=== PATIENT | male | born 1980 | race Caucasian/White ===

== ENCOUNTER 2017-09-19 21:29 | Emergency (ER) | payer BC ==
[~2017-09-19] VITALS: Ht 185.4 cm; Wt 99.8 kg
[~2017-09-19 21:29] MED LIST: ACET1TAB43; BUPR150T14 PO; CITA20TA9 PO; CLIN150C17 PO; IBUP-1773 PO; LIDO15SO2; METH36TA12 PO; PRD20T
[2017-09-19] MEDS ORDERED: SULF1TAB35 PO (22:15)
[2017-09-19] MEDS ORDERED: RX-TRIMETH/SULFA. 160-800 MG (BACTRIM DS) TAB PPK#2 PO ONE (22:15)
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
[2017-09-19 23:42] VITALS: BP 145/74
== END 2017-09-19 23:42 | disposition home or self-care (01) ==
LOC: EDUNIT# 21:29 → ER 21:31
DX: S66.221A Laceration of extensor muscle, fascia and tendon of right thumb at wrist and hand level, initial encounter (principal); F32.9 Major depressive disorder, single episode, unspecified; F90.9 Attention-deficit hyperactivity disorder, unspecified type; Z87.891 Personal history of nicotine dependence; W25.XXXA Contact with sharp glass, initial encounter; Y92.009 Unspecified place in unspecified non-institutional (private) residence as the place of occurrence of the external cause; Y93.G1 Activity, food preparation and clean up
CPT/HCPCS: 12041; 29125

== ENCOUNTER 2018-07-25 21:09 | Emergency (ER) | payer BC, OTHER ==
[~2018-07-25] VITALS: Ht 185.4 cm; Wt 90.7 kg
[~2018-07-25 21:09] MED LIST changes: +SULF1TAB35 PO
[2018-07-25] MEDS ORDERED: HYDROcodone/APAP 5 MG/325 MG (LORTAB) TAB PO ONE (22:15)
[2018-07-25] MEDS ORDERED: RX-HYDROCODONE/APAP 5/325 MG #4 TAB PK PO PRN (22:15)
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
[2018-07-25] MEDS ORDERED: HYDR-4226 PO (23:14)
[2018-07-25 23:26] VITALS: BP 102/73
--- NOTE | 2018-07-26 08:01 | Diagnostic Imaging Report ---
INDICATION: Left hand pain, work injury. TECHNIQUE: Three views of the left hand. CORRELATION STUDY: None FINDINGS: There is normal alignment and appearance of the osseous structures of the hand. The joint spaces are maintained. There is no acute fracture. Soft tissues are unremarkable. IMPRESSION: 1. Negative for acute bony abnormality of the hand. Dictated by: Dictated on workstation # [id number]
== END 2018-07-25 23:28 | disposition home or self-care (01) ==
LOC: EDUNIT# 21:09 → ER 21:10
DX: S60.222A Contusion of left hand, initial encounter (principal); F90.9 Attention-deficit hyperactivity disorder, unspecified type; F32.9 Major depressive disorder, single episode, unspecified; F98.8 Other specified behavioral and emotional disorders with onset usually occurring in childhood and adolescence; Z87.891 Personal history of nicotine dependence; W22.09XA Striking against other stationary object, initial encounter
CPT/HCPCS: 73130

== ENCOUNTER 2019-06-25 00:57 | Inpatient (IN) | payer SELFPAY ==
[~2019-06-25] VITALS: Ht 185.5 cm; Wt 87.1 kg
[~2019-06-25 00:57] MED LIST changes: +HYDR-4226 PO; -LIDO15SO2; +LIDO20SO23
[2019-06-25] MEDS ORDERED: LACTATED RINGERS 1,000 ML IV ONE (01:38)
[2019-06-25 01:55] LABS: BASOPHILS % (AUTO) 0 % (0-10); EOSINOPHILS # (AUTO) 0.2 10^3/uL (0.0-0.3); EOSINOPHILS % (AUTO) 2 % (0-10); HEMATOCRIT 39 % (40-54); HEMOGLOBIN 13.2 G/DL (13.3-17.7); LYMPHOCYTES # (AUTO) 1.6 X 10^3 (1.0-4.0); LYMPHOCYTES % (AUTO) 15 % (12-44); MEAN CORPUSCULAR HEMOGLOBIN 30 PG (25-34); MEAN CORPUSCULAR HGB CONC 34 G/DL (32-36); MEAN CORPUSCULAR VOLUME 89 FL (80-99); MEAN PLATELET VOLUME 9.5 FL (7.4-10.4); MONOCYTES # (AUTO) 1.2 X 10^3 (0.0-1.0); MONOCYTES % (AUTO) 12 % (0-12); NEUTROPHILS # (AUTO) 7.5 X 10^3 (1.8-7.8); NEUTROPHILS % (AUTO) 71 % (42-75); PLATELET COUNT 322 10^3/uL (130-400); RED CELL DISTRIBUTION WIDTH 12.6 % (10.0-14.5); WHITE BLOOD COUNT 10.5 10^3/uL (4.3-11.0)
[2019-06-25] MEDS ORDERED: ACETAMINOPHEN 500 MG TAB (TYLENOL) PO STA (02:29)
[2019-06-25] MEDS ORDERED: KETOROLAC 30 MG/ML VIAL IVP STA (02:29)
[2019-06-25 02:35] LABS: ALANINE AMINOTRANSFERASE 24 U/L (0-55); ALBUMIN 4.3 GM/DL (3.2-4.5); ALKALINE PHOSPHATASE 86 U/L (40-136); BILIRUBIN,TOTAL 0.3 MG/DL (0.1-1.0); BUN/CREATININE RATIO 9; CARBON DIOXIDE 26 MMOL/L (21-32); CHLORIDE 100 MMOL/L (98-107); CREATININE SERUM 0.98 MG/DL (0.60-1.30); GFR ESTIMATED > 60; GLUCOSE 108 MG/DL (70-105); POTASSIUM 4.3 MMOL/L (3.6-5.0); SODIUM 136 MMOL/L (135-145)
[2019-06-25] MEDS ORDERED: IOHEXOL 350 MG/ML 100 ML (OMNIPAQUE 350) VIAL IV ONE (03:15)
[2019-06-25] MEDS ORDERED: HOLD METFORMIN - RECEIVED CONTRAST 20 ML VIAL IV SCH (03:15)
[2019-06-25] MEDS ORDERED: NS 100 ML (IVPB) BAG IV ONE (03:15)
[2019-06-25] MEDS ORDERED: AMPICILLIN/SULBACTAM INJECTION 3 GM in NS (IVPB) 100 ML IV ONE (04:00)
--- NOTE | 2019-06-25 04:20 | ED EENT ---
History of Present Illness General Chief Complaint: Oral/Throat Problems Stated Complaint: DIFFICULTY SWALLOWING, FEVER Nursing Triage Note: Pt ambulates to Rm 6 with c/o sore throat, left side of mouth swollen. Pt states the last time his mouth felt like this, he had a dental abscess. Pt temp 100.6F Source: patient Exam Limitations: no limitations History of Present Illness Date Seen by Provider: Jun 25, 2019 Time Seen by Provider: 01:39 Initial Comments Here with complaint of throat swelling and difficulty swallowing. States that it feels like when he had peritonsillar abscess previously. He does have fever. He is able to swallow but states that it hurts. Denies nausea, vomiting or diarrhea. Does have his tonsils but has had adenoidectomy. Timing/Duration: gradual Severity: moderate Location: throat Prearrival Treatment: over the counter meds Modifying Factors: Worse With Coughing Associated Symptoms: No cough, No facial pain/swelling; fever; No poor fluid intake; poor solids intake, sore throat; No voice change Allergies and Home Medications Allergies Coded Allergies: No Known Drug Allergies (Unverified , 04/02/17) Home Medications Bupropion HCl 150 Mg Tablet.er, 150 MG PO BID, (Reported) Citalopram Hydrobromide 20 Mg Tablet, 20 MG PO DAILY, (Reported) Hydrocodone/Acetaminophen 1 Each Tablet, 1 EACH PO Q6H PRN for PAIN-MODERATE Prescribed by: MARK MIGUEL on 07/25/18 2314 Ibuprofen 600 Mg Tablet, 600 MG PO Q6H PRN for PAIN-MILD, (Reported) Methylphenidate HCl 36 Mg Tab.er.24, 36 MG PO DAILY, (Reported) Sulfamethoxazole/Trimethoprim 1 Each Tablet, 1 EACH PO BID Prescribed by: ANA QUINONES on 09/19/17 2215 Patient Home Medication List Home Medication List Reviewed: Yes Review of Systems Review of Systems Constitutional: see HPI, fever Eyes: No Symptoms Reported Ears: No Symptoms Reported Nose: no symptoms reported Mouth: no symptoms reported Throat: see HPI, pain, swelling; denies neck stiffness; hoarse; denies aphonia, denies muffled Respiratory: no symptoms reported Cardiovascular: no symptoms reported Gastrointestinal: no symptoms reported Musculoskeletal: no symptoms reported All Other Systems Reviewed Negative Unless Noted: Yes Past Zlexrwo-Allryn-Hhnsuw Hx Past Med/Social Hx: Reviewed Nursing Past Med/Soc Hx Patient Social History Alcohol Use: Rarely Uses Number of Drinks Today: AA Alcohol Beverage of Choice: Beer Recreational Drug Use: No Smoking Status: Current Everyday Smoker Type Used: Cigarettes Former Smoker, Quit: May 27, 2017 2nd Hand Smoke Exposure: Yes Recent Foreign Travel: No Contact w/Someone Who Travel: No Recent Infectious Disease Expo: No Recent Hopitalizations: No Physical Abuse: No Sexual Abuse: No Mistreated: No Fear: No Immunizations Up To Date Tetanus Booster (TDap): Less than 5yrs Date of Influenza Vaccine: Apr 06, 2017 Seasonal Allergies Seasonal Allergies: No Past Medical History Surgeries: Yes (tubes in ears, oral Sx for abscess) Ear Surgery Respiratory: No Cardiac: No Neurological: No Reproductive Disorders: No Genitourinary: No Gastrointestinal: No Musculoskeletal: No Endocrine: No HEENT: No Cancer: No Psychosocial: Yes ADD/ADHD, Depression Integumentary: No Blood Disorders: No Family Medical History Reviewed Nursing Family Hx Physical Exam Vital Signs Vital Signs - First Documented 06/25/19 01:37 Temp 38.1 Pulse 82 Resp 20 B/P (MAP) 140/78 (98) Pulse Ox 98 O2 Delivery Room Air Height, Weight, BMI Height: 6'1.00" Weight: 200lbs. 0oz. 90.999874ii; 24.00 BMI Method:Stated General Appearance: WD/WN, no apparent distress Eyes: bilateral eye normal inspection, bilateral eye PERRL, bilateral eye EOMI Ears: bilateral ear auricle normal, bilateral ear canal normal, bilateral ear TM normal Nose: normal inspection Mouth/Throat: No dental tenderness; pharynx swelling, tonsillar swelling; No trismus; uvula swelling; No voice changes Neck: full range of motion, supple, lymphadenopathy (R), lymphadenopathy (L) Cardiovascular: regular rate, rhythm, no murmur Respiratory: lungs clear, normal breath sounds Gastrointestinal: non tender, soft Neurologic/Psychiatric: alert, oriented x 3 Skin: normal color, warm/dry Procedures/Interventions Suture Size: 4-0 Progress/Results/Core Measures Results/Orders Lab Results Laboratory Tests Test 06/25/19 01:36 06/25/19 01:41 Range/Units Group A Streptococcus Screen NEGATIVE NEGATIVE White Blood Count 10.5 4.3-11.0 10^3/uL Red Blood Count 4.36 4.35-5.85 10^6/uL Hemoglobin 13.2 L 13.3-17.7 G/DL Hematocrit 39 L 40-54 % Mean Corpuscular Volume 89 80-99 FL Mean Corpuscular Hemoglobin 30 25-34 PG Mean Corpuscular Hemoglobin Concent 34 32-36 G/DL Red Cell Distribution Width 12.6 10.0-14.5 % Platelet Count 322 130-400 10^3/uL Mean Platelet Volume 9.5 7.4-10.4 FL Neutrophils (%) (Auto) 71 42-75 % Lymphocytes (%) (Auto) 15 12-44 % Monocytes (%) (Auto) 12 0-12 % Eosinophils (%) (Auto) 2 0-10 % Basophils (%) (Auto) 0 0-10 % Neutrophils # (Auto) 7.5 1.8-7.8 X 10^3 Lymphocytes # (Auto) 1.6 1.0-4.0 X 10^3 Monocytes # (Auto) 1.2 H 0.0-1.0 X 10^3 Eosinophils # (Auto) 0.2 0.0-0.3 10^3/uL Basophils # (Auto) 0.0 0.0-0.1 10^3/uL Sodium Level 136 135-145 MMOL/L Potassium Level 4.3 3.6-5.0 MMOL/L Chloride Level 100 98-107 MMOL/L Carbon Dioxide Level 26 21-32 MMOL/L Anion Gap 10 5-14 MMOL/L Blood Urea Nitrogen 9 7-18 MG/DL Creatinine 0.98 0.60-1.30 MG/DL Estimat Glomerular Filtration Rate > 60 BUN/Creatinine Ratio 9 Glucose Level 108 H 70-105 MG/DL Calcium Level 9.0 8.5-10.1 MG/DL Corrected Calcium 8.8 8.5-10.1 MG/DL Total Bilirubin 0.3 0.1-1.0 MG/DL Aspartate Amino Transf (AST/SGOT) 23 5-34 U/L Alanine Aminotransferase (ALT/SGPT) 24 0-55 U/L Alkaline Phosphatase 86 40-136 U/L C-Reactive Protein High Sensitivity 3.21 H 0.00-0.50 MG/DL Total Protein 7.0 6.4-8.2 GM/DL Albumin 4.3 3.2-4.5 GM/DL Micro Results Microbiology 06/25/19 Influenza Types A,B Antigen (OLLIE) - Final, Complete My Orders Orders - SHELLI YOUNG MD Cbc With Automated Diff (06/25/19 01:38) Comprehensive Metabolic Panel (06/25/19 01:38) Hs C Reactive Protein (06/25/19 01:38) Rapid Strep A Screen (06/25/19 01:38) Influenza A And B Antigens (06/25/19 01:38) Ed Iv/Invasive Line Start (06/25/19 01:38) Lactated Ringers (Lr 1000 Ml Iv Solution (06/25/19 01:38) Acetaminophen Tablet (Tylenol Tablet) (06/25/19 02:29) Ketorolac Injection (Toradol Injection) (06/25/19 02:29) Ct Neck (Soft Tissue) W (06/25/19 02:29) Iohexol Injection (Omnipaque 350 Mg/Ml 1 (06/25/19 03:15) Received Contrast (Hold Metformin- Contr (06/25/19 03:15) Ns (Ivpb) (Sodium Chloride 0.9% Ivpb Bag (06/25/19 03:15) Ampicillin/Sulbactam Injection (Unasyn 3 (06/25/19 04:00) Medications Given in ED Current Medications Medications Dose Ordered Sig/Nevaeh Route Start Time Stop Time Status Last Admin Dose Admin Iohexol 100 ml ONCE ONCE IV 06/25/19 03:15 06/25/19 03:16 DC 06/25/19 03:06 75 ML Lactated Ringer's 1,000 ml @ 0 mls/hr Q0M ONCE IV 06/25/19 01:38 06/25/19 01:40 DC 06/25/19 01:46 0 MLS/HR Sodium Chloride 100 ml ONCE ONCE IV 06/25/19 03:15 06/25/19 03:16 DC 06/25/19 03:06 80 ML Vital Signs/I&O 06/25/19 01:37 Temp 38.1 Pulse 82 Resp 20 B/P (MAP) 140/78 (98) Pulse Ox 98 O2 Delivery Room Air Blood Pressure Mean: 98 Progress Progress Note : Progress Note Seen and evaluated. IV, labs, CMP, LR 1 L bolus, Toradol 30 mg IV and Tylenol 1 g by mouth ordered. Anticipate CT soft tissue neck. 0405: Patient was found to have left peritonsillar abscess. Unasyn 3 g IV ordered. I did discuss the case with Dr. Vick and she accepts patient for admission, on-call for Dr. Modi. We will consult Dr. Aburto tomorrow morning. All findings concerns discussed with patient and family who agree with plan. Admit, inpatient status. Diagnostic Imaging Diagonstic Imaging: CT Plain Films/CT/US/NM/MRI: other (soft tissue neck) Comments Small left tonsillar abscess. Bilateral tonsillar enlargement. Reviewed: Reviewed Night Amrit Study, Reviewed by Me Departure Communication (Admissions) Time/Spoke to Admitting Phy: 04:05 Impression Primary Impression: Peritonsillar abscess Disposition: ADMITTED INPATIENT Condition: Stable Admissions Decision to Admit Reason: Admit from ER (General) Decision to Admit/Date: Jun 25, 2019 Time/Decision to Admit Time: 04:05 Departure-Patient Inst. Referrals: SUDEEP MODI MD (PCP/Family) Primary Care Physician SHELLI YOUNG MD Jun 25, 2019 04:20
--- NOTE | 2019-06-25 06:05 | NUR ---
DANIKA MURCIA admitted to room 415-1, with an admitting diagnosis of TOOTH ABSCESS, on 06/25/19 from ED via , accompanied by .DANIKA MURCIA introduced to surroundings, call light, bed controls, phone, TV, temperature control, lights, meal times, smoking policy, visitor policy, side rail policy, bathrooms and showers. Patient Rights given to patient in the handbook. DANIKA MURCIA verbalizes understanding that [facility] is not responsible for the loss or damage to any personal effects or valuables that are kept in the patients posession during their hospitalization. DANIKA MURCIA verbalizes understanding of Interdisciplinary Patient Education. Patient and/or family were informed about the Rapid Response Team and its purpose.
--- NOTE | 2019-06-25 06:10 | Diagnostic Imaging Report ---
PROCEDURE: CT neck soft tissue with contrast. TECHNIQUE: Multiple contiguous axial images were obtained through the neck after the administration of contrast. Auto Exposure Controls were utilized during the CT exam to meet ALARA standards for radiation dose reduction. INDICATION: Sore throat. Comparison made with prior examination 04/02/2017. FINDINGS: The visualized intracranial structures are unremarkable. The frontal ethmoid, sphenoid and maxillary sinuses are clear. Mastoid air cells are clear. The globes and intraorbital structures are unremarkable. The parotid, submandibular and thyroid glands are normal in appearance. The lung apices are clear. The major vascular structures of the neck enhance in normal fashion. There is no dissection, stenosis or occlusion. Cervical spine is unremarkable. Epiglottis is unremarkable. There is focal edema in the region of the left tonsil. There is a 1 cm area of decreased attenuation suspect for abscess. There is some mass effect on airway, however it remains widely patent. There is no pathologically enlarged adenopathy or mass in the neck. IMPRESSION: 1 cm left peritonsillar abscess. Additionally, there is bilateral tonsillar enlargement. No other acute abnormality in the neck. Dictated by: Dictated on workstation # [id number]
[2019-06-25 06:12] VITALS: BP 124/76
[2019-06-25] MEDS ORDERED: FLU QUADRIvalent (5+ YOA) 2019-2020 (AFLURIA) 0.5 ML IM ONE (07:15)
[2019-06-25 07:25] VITALS: BP 112/64
[2019-06-25] MEDS ORDERED: ONDANSETRON 4 MG/2 ML (SDV) Z0FRAN IVP PRN (07:45)
[2019-06-25] MEDS: KETOROLAC 30 MG/ML VIAL IVP PRN ×2 (09:02→16:26)
[2019-06-25] MEDS ORDERED: DEXAMETHASONE 4 MG/ML SDV (DECADRON) IV NR (09:17)
--- NOTE | 2019-06-25 09:20 | History & Physicial ---
History of Present Illness History of Present Illness Reason for visit/HPI PT IS A 38 Y/O MALE WHO IS A CLINIC PATIENT OF DR. 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 HE PRESENTED TO THE EMERGENCY DEPARTMENT WITH COMPLAINT OF THROAT PAIN SIMILAR TO A PREVIOUS PERITONSILLAR ABSCESS AND HE WAS CONCERNED FOR THIS TO BE AN EVOLVING PROBLEM. HE REPORTS THAT HE WAS HOSPITALIZED IN 2017 FOR A LARGE ABSCESS AND DR. CAMPUZANO HAD TO DRAIN THE ABSCESS. HE STATES THAT HE FEELS A LITTLE BIT BETTER NOW, BUT STILL HAS A FULLNESS AND A SENSATION OF CHOKING AT TIMES. Date of Admission Jun 25, 2019 at 04:12 Date Seen by a Provider: Jun 25, 2019 Time Seen by a Provider: 09:16 I consulted on this patient on 06/25/19 09:15 Attending Physician Valarie Vick MD Admitting Physician Jose Modi MD Consult DR. CHANI CAMPUZANO Allergies and Home Medications Allergies Coded Allergies: No Known Drug Allergies (Unverified , 04/02/17) Home Medications Bupropion HCl 150 Mg Tablet.er, 150 MG PO BID, (Reported) Citalopram Hydrobromide 20 Mg Tablet, 20 MG PO DAILY, (Reported) Methylphenidate HCl 54 Mg Tab.er.24, 54 MG PO DAILY, (Reported) Patient Home Medication List Home Medication List Reviewed: Yes Past Kdyuuck-Ttfnwt-Sloaxc Hx Patient Social History Marrital Status: single (BUT ENGAGED) Number of Children: 2 Number of living children: 2 Living Status: LIVES WITH SIGNIFICANT OTHER Employed/Student: unemployed (WORKED FOR [employer]) Alcohol Use: Denies Use Number of Drinks Today: AA Recreational Drug Use: No Smoking Status: Former Smoker Former Smoker, Quit: May 27, 2017 Type Used: Cigarettes 2nd Hand Smoke Exposure: Yes Physical Abuse Screen: No Sexual Abuse: No Recent Foreign Travel: No Contact w/other who traveled: No Recent Hopitalizations: No Recent Infectious Disease Expo: No Immunizations Up To Date Tetanus Booster (TDap): Less than 5yrs Date of Influenza Vaccine: Apr 06, 2017 Seasonal Allergies Seasonal Allergies: No Surgeries Yes (tubes in ears, oral Sx for PERITONSILAR abscess IN 2017) Ear Surgery Respiratory No Cardiovascular No Neurological No Reproductive System Hx Reproductive Disorders: No Sexually Transmitted Disease: No HIV/AIDS: No Genitourinary No Gastrointestinal No Musculoskeletal No Endocrine History of Endocrine Disorders: No HEENT History of HEENT Disorders: No Cancer No Psychosocial History of Psychiatric Problem: Yes Behavioral Health Disorders: ADD/ADHD, Depression Integumentary History of Skin or Integumenta: No Blood Transfusions History of Blood Disorders: No Reviewed Nursing Assessment Reviewed/Agree w Nursing PMH: Yes Family Medical History Significant Family History: No Pertinent Family Hx (PT REPORTS THAT HIS MOTHER AND FATHER ARE ALIVE AND HEALTHY) Review of Systems Constitutional: No chills, No fever, No malaise, No weakness EENTM: throat pain, throat swelling; No hoarseness, No mouth swelling Respiratory: No cough, No dyspnea on exertion, No short of breath Cardiovascular: No chest pain, No palpitations Gastrointestinal: No abdominal pain, No constipation, No diarrhea; dysphagia; No loss of appetite, No nausea, No vomiting Genitourinary: no symptoms reported Musculoskeletal: no symptoms reported Skin: no symptoms reported Psychiatric/Neurological: Depressed All Other Systems Reviewed Negative Unless Noted: Yes Physical Exam Vital Signs Vital Signs - First Documented 06/25/19 01:37 Temp 38.1 Pulse 82 Resp 20 B/P (MAP) 140/78 (98) Pulse Ox 98 O2 Delivery Room Air Capillary Refill : Less Than 3 Seconds Height, Weight, BMI Height: 6'1.00" Weight: 200lbs. 0oz. 90.814043br; 25.31 BMI Method:Stated General Appearance: No Apparent Distress, WD/WN Eyes: Bilateral Eye Normal Inspection, Bilateral Eye PERRL, Bilateral Eye EOMI HEENT: Tonsillar Enlargement (BIALTERALLY WITH LEFT PILLAR MORE ENLARGED THAN ON RIGHT) Neck: Non Tender, Supple, Lymphadenopathy (L) Respiratory: Chest Non Tender, Lungs Clear, Normal Breath Sounds, No Accessory Muscle Use, No Respiratory Distress Cardiovascular: Regular Rate, Rhythm, No Edema, No Murmur, Normal Peripheral Pulses Gastrointestinal: Normal Bowel Sounds, No Organomegaly, No Pulsatile Mass, Non Tender, Soft Rectal: Deferred Back: Normal Inspection, No CVA Tenderness, No Vertebral Tenderness Extremity: Normal Capillary Refill, Normal Inspection, Normal Range of Motion, Non Tender, No Calf Tenderness, No Pedal Edema Neurologic/Psychiatric: Alert, Oriented x3, No Motor/Sensory Deficits, Normal Mood/Affect, scale operator II-XII Norm as Tested Skin: Normal Color, Warm/Dry Lymphatic: Other (LEFT ANTERIOR AND POSTERIOR SURGICAL LYMPH NODES ENLARGED) Assessment/Plan Assessment and Plan LEFT PERITONSILLAR ABSCESS CHRONIC DEPRESSION ADHD LEFT PERITONSILLAR ABSCESS - PT ON UNASYN, CONTINUE WITH THIS ANTIBIOTIC IV FOR NOW AND MONITOR LABS, CRP, SYMPTOMS. - DISCUSSED CASE WITH DR. CAMPUZANO - HE WILL SEE PT LATER TODAY, HE REQUESTED INITIATION OF A DOSE OF DECADRON 10MG IV X 1. CHRONIC DEPRESSION - RESTART BUPROPRION AND CELEXA - I CONFIRMED BOTH DOSES WITH THE PATIENT. ADHD - HOLD HOME REGIMEN AT THIS TIME IT IS NOT NEEDED IN THE HOSPITAL. Admission Diagnosis LEFT PERITONSILLAR ABSCESS CHRONIC DEPRESSION ADHD Admission Status: Inpatient Order (span 2 midnights) Reason for Inpatient Admission: INPATIENT ADMISSION FOR IV ANTIBIOTICS FOR ACUTE PERITONSILLAR ABSCESS, WILL NEED ANTIBIOTICS, MAY NEEDS SURGICAL INTERVENTION IF SYMPTOMS DO NOT IMPROVE ON ANTIBIOTIC REGIMEN. WILL REQUIRE AT LEAST 48 - 72 HOURS IN HOSPITAL FOR TREATMENT PRIOR TO SAFE DISCHARGE TO HOME. Clinical Quality Measures DVT/VTE Risk/Contraindication: Risk Factor Score Per Nursin RFS Level Per Nursing on Admit: 1=Low/No VTE PPX VALARIE VICK MD Jun 25, 2019 09:20
[2019-06-25] MEDS ORDERED: METH54TA10 PO (10:35)
--- NOTE | 2019-06-25 11:00 | NUR ---
PT STATES HE FEELS BAD WITH SORE THROAT AND STATED THAT IV ANTIBIOTIC WOULD BE SOON. IV ANTIBIOTIC GIVEN AT 11:10 BECAUSE IT WAS GIVEN AT 0420 EARLIER, AND IT IS ORDERED Q8H. ( DUE AT 1400 PER PHARMACY TIMED.) Addendum: 06/25/19 at 1420 by WHITNEY WOOD RN UNASYN 3 GM GIVEN AT 0420 AND 1117
--- NOTE | 2019-06-25 11:05 | Progress Note ---
Standard Progress Note Progress Notes/Assess & Plan Date Seen by a Provider: Jun 25, 2019 Time Seen by a Provider: 11:00 Progress/Assessment & Plan ENT-Lamonte Santiago seen and evaluated-full consult dictated CHANI CAMPUZANO MD Jun 25, 2019 11:05
[2019-06-25 11:12] VITALS: BP 125/82
[2019-06-25] MEDS: AMPICILLIN/SULBACTAM 3 GM/NS 100 ML IVPB IV SCH ×6 (11:17→21:36)
[2019-06-25] MEDS: buPROPion SR 150 MG (WELLBUTRIN SR) TAB PO SCH ×2 (11:17→21:36)
--- NOTE | 2019-06-25 11:28 | NUR ---
PT. REQUESTS FLU VACCINE ON DISCHARGE.
[2019-06-25] MEDS: ACETAMINOPHEN 500 MG TAB (TYLENOL) PO PRN (15:57)
[2019-06-25] MEDS ORDERED: CHLORASEPTIC SPRAY 177 ML LIQUID MC PRN (16:00)
[2019-06-25 16:16] VITALS: BP 128/82
[2019-06-25 19:15] VITALS: BP 126/75
[2019-06-25] MEDS ORDERED: diphenhydrAMINE 25 MG TAB (BENADRYL) PO SCH (21:00)
[2019-06-26 04:00] VITALS: BP 148/82
[2019-06-26] MEDS: KETOROLAC 30 MG/ML VIAL IVP PRN ×2 (04:46→12:30)
[2019-06-26 05:27] LABS: HEMOGLOBIN 13.5 G/DL (13.3-17.7); MEAN PLATELET VOLUME 10.2 FL (7.4-10.4); RED CELL DISTRIBUTION WIDTH 12.6 % (10.0-14.5); WHITE BLOOD COUNT 12.4 10^3/uL (4.3-11.0)
[2019-06-26] MEDS: AMPICILLIN/SULBACTAM 3 GM/NS 100 ML IVPB IV SCH ×4 (05:33→12:30)
[2019-06-26 06:00] LABS: ALANINE AMINOTRANSFERASE 26 U/L (0-55); ALBUMIN 4.3 GM/DL (3.2-4.5); ALKALINE PHOSPHATASE 89 U/L (40-136); BILIRUBIN,TOTAL 0.5 MG/DL (0.1-1.0); BUN/CREATININE RATIO 10; CALCIUM 9.3 MG/DL (8.5-10.1); CARBON DIOXIDE 25 MMOL/L (21-32); CHLORIDE 102 MMOL/L (98-107); CREATININE SERUM 0.86 MG/DL (0.60-1.30); GFR ESTIMATED > 60; GLUCOSE 109 MG/DL (70-105); POTASSIUM 4.2 MMOL/L (3.6-5.0); SODIUM 137 MMOL/L (135-145); TOTAL PROTEIN 7.4 GM/DL (6.4-8.2)
[2019-06-26 08:00] VITALS: BP 148/96
[2019-06-26] MEDS ORDERED: FLU QUADRIvalent (5+ YOA) 2019-2020 (AFLURIA) 0.5 ML IM ONE (08:58)
[2019-06-26] MEDS: buPROPion SR 150 MG (WELLBUTRIN SR) TAB PO SCH (09:05)
--- NOTE | 2019-06-26 10:15 | NUR ---
Pt is [employer] and declines sacraments expecting to go home.
[2019-06-26] MEDS: ACETAMINOPHEN 500 MG TAB (TYLENOL) PO PRN (10:52)
--- NOTE | 2019-06-26 11:34 | NUR ---
SPOKE WITH THE PT AND WENT THRU THE EXT MED HISTORY TO COMPLETE THE MED REC. THE MED REC WAS DONE OVER THE WEEKEND (06-25-2019) BY THE - AND NO CHANGED WERE MADE. PT DENIES TAKING ANY OTC MEDS
[2019-06-26 12:00] VITALS: BP 119/73
--- NOTE | 2019-06-26 12:26 | CONSULTATION REPORT ---
DATE OF SERVICE: ENT CONSULT LOCATION: [id number]. REFERRING PHYSICIAN: Dr. Vick. REASON FOR CONSULTATION: Left peritonsillar abscess. HISTORY OF PRESENT ILLNESS: The patient was admitted early this morning with a 1 cm left peritonsillar abscess. He had the acute onset of symptoms on Wednesday morning. He had progressed to the point where he is having difficulty swallowing. He presented to the emergency room, white count at that time was 10.5. CT scan showed a 1 cm abscess on the left. He has a prior history of a large abscess on the right, which measured some 5 to 6 cm in diameter. He has not been sick otherwise. He reports he is no longer traveling for work. PHYSICAL EXAMINATION: GENERAL: He is in no acute distress, alert and oriented x3. Communication, speech and voice were normal. HEENT: EARS: Canals were normal. Tympanic membranes were intact and mobile. No evidence of infection or fluid present. NOSE: Normal nasal mucosa, no masses or lesions seen. There is no drainage present. ORAL CAVITY: No trismus present. No swelling of the floor of the mouth. PHARYNX: Left tonsil asymmetrically enlarged, but no palpable abscess present. Larynx good airway present. Voice was normal. No stridor noted. NECK: Mild tenderness in the left tonsil region, but otherwise clear. NEUROLOGIC: Cranial nerves II-XII are intact. SKIN: Exposed skin surfaces were clear. IMPRESSION: 1. Left peritonsillar abscess -- small. 2. Acute tonsillitis. RECOMMENDATIONS: Findings were discussed with the patient. He has seen improvement with the steroids and the Unasyn. I will continue that for at least 24 hours as long as clinically he continues to improve and is able to tolerate a diet then he could be discharged tomorrow morning after his morning dose of IV antibiotics and steroids. I wrote prescriptions for Ceftin 250 mg twice a day for 10 days as well as an 8-day prednisone taper. He will need to follow up in my office in approximately 10 to 14 days. I would consider removal of the tonsils given this is his second abscess. Thank you for the consult. Job ID: [id number] DocumentID: [id number] Dictated Date: 06/25/2019 12:04:34 Weapons Electrical Engineering Officer Date: 06/25/2019 12:35:00 Dictated By: CHANI CAMPUZANO MD
[2019-06-26] MEDS ORDERED: CEFU250T80 PO (12:51)
--- NOTE | 2019-06-26 12:54 | Discharge Summary ---
Discharge Summary Hospital Course Was the Problem List Reviewed?: Yes Hospital Course Date of Admission: Jun 25, 2019 at 04:12 Admission Diagnosis : Family Physician/Provider: Jose Modi MD Date of Discharge: 06/26/19 Discharge Diagnosis: left peritonsillar abscess Hospital Course: [ ] Labs and Pending Lab Test: Laboratory Tests 06/26/19 04:33: White Blood Count 12.4H, Red Blood Count 4.50, Hemoglobin 13.5, Hematocrit 40, Mean Corpuscular Volume 89, Mean Corpuscular Hemoglobin 30, Mean Corpuscular Hemoglobin Concent 34, Red Cell Distribution Width 12.6, Platelet Count 328, Mean Platelet Volume 10.2, Sodium Level 137, Potassium Level 4.2, Chloride Level 102, Carbon Dioxide Level 25, Anion Gap 10, Blood Urea Nitrogen 9, Creatinine 0.86, Estimat Glomerular Filtration Rate > 60, BUN/Creatinine Ratio 10, Glucose Level 109H, Calcium Level 9.3, Corrected Calcium 9.1, Total Bilirubin 0.5, Aspartate Amino Transf (AST/SGOT) 20, Alanine Aminotransferase (ALT/SGPT) 26, Alkaline Phosphatase 89, C-Reactive Protein High Sensitivity 10.15H, Total Protein 7.4, Albumin 4.3 Microbiology 06/25/19 Influenza Types A,B Antigen (OLLIE) - Final, Complete Home Meds Active Cefuroxime (Cefuroxime Axetil) 250 Mg Tablet 250 Mg PO BID Reported Methylphenidate ER (Methylphenidate HCl) 54 Mg Tab.er.24 54 Mg PO DAILY Bupropion HCl Sr (Bupropion HCl) 150 Mg Tablet.er 150 Mg PO BID Citalopram HBr (Citalopram Hydrobromide) 20 Mg Tablet 20 Mg PO DAILY Assessment/Pt Instructions Appt at [facility] on Wednesday AM. Follow up with Dr. Aburto- will likely need tonsils removed. complete ceftin and steroid taper. Discharge Instructions Discharge Diet: Regular Diet Activity as Tolerated: Yes Consultations Dr. Aburto Discharge Physical Examination Vital Signs Vital Signs Date Time Temp Pulse Resp B/P (MAP) Pulse Ox O2 Delivery O2 Flow Rate FiO2 06/26/19 12:00 37.0 73 18 119/73 (88) 100 Room Air General Appearance: No Apparent Distress HEENT: PERRL/EOMI Respiratory: Chest Non Tender, Lungs Clear, Normal Breath Sounds, No Accessory Muscle Use, No Respiratory Distress Cardiovascular: Regular Rate, Rhythm Gastrointestinal: Soft Extremity: Non Tender, No Calf Tenderness Skin: Normal Color, Warm/Dry Neurologic/Psychiatric: Alert, Oriented x3, No Motor/Sensory Deficits Allergies: Coded Allergies: No Known Drug Allergies (Unverified , 04/02/17) Discharge Summary Date of Admission Jun 25, 2019 at 04:12 Date of Discharge Discharge Date: Jun 26, 2019 Clinical Quality Measures DVT/VTE Risk/Contraindication: Risk Factor Score Per Nursin RFS Level Per Nursing on Admit: 1=Low/No VTE PPX JOSE MODI MD Jun 26, 2019 12:54
[2019-06-26 13:20] VITALS: BP 119/73
--- NOTE | 2019-06-26 13:25 | NUR ---
DANIKA MURCIA demonstrates understanding of discharge instructions and accurately returns instructions upon questioning. Copy of Post-Discharge Instructions given to PT. DANIKA MURCIA is able to manage continuing needs after discharge. Patients belongings returned to PT. Patient discharged from [facility] on 06/26/19 at 1325. DANIKA MURCIA left floor via W/C, accompanied by STAFF AND FAMILY PER AUTO.
[2019-06-26] MEDS ORDERED: PRD20T PO (13:57)
== END 2019-06-26 13:25 | disposition home or self-care (01) | DRG 153 ==
LOC: EDUNIT# 00:57 → ER 00:59 → 4TH 04:12
PROVIDERS: ADMIT Family Medicine; ATTEND Family Medicine
DX: J36 Peritonsillar abscess (principal); F90.9 Attention-deficit hyperactivity disorder, unspecified type; F32.9 Major depressive disorder, single episode, unspecified; Z87.891 Personal history of nicotine dependence
CPT/HCPCS: 36415; 70491; 80053; 85025; 85027; 86141; 87430; 87804; 96361; 96365; 96375

== ENCOUNTER 2019-11-02 05:44 | Outpatient (RCR) | payer SELFPAY ==
[~2019-11-02 05:44] MED LIST changes: +CEFU250T80 PO; +METH54TA10 PO; +PRD20T PO
== END 2020-01-31 | disposition home or self-care (01) ==
LOC: PREOP 05:44
PROVIDERS: ATTEND Otolaryngology Otolaryngology/Facial Plastic Surgery
DX: Z01.818 Encounter for other preprocedural examination (principal)

== ENCOUNTER 2020-11-06 05:31 | Outpatient (RCR) | payer SELFPAY ==
[~2020-11-06] VITALS: Ht 182.9 cm; Wt 88.6 kg
[~2020-11-06 05:31] MED LIST changes: -AMOX250S5 PO; -DEXAINTSOL PO; -HYDR15SO8 PO; -TETRACAINESUCKERS MT
== END 2020-11-06 12:04 | disposition home or self-care (01) ==
LOC: PREOP 05:31
PROVIDERS: ATTEND Otolaryngology Otolaryngology/Facial Plastic Surgery
DX: Z29.8 Encounter for other specified prophylactic measures (principal)

== ENCOUNTER → 2020-11-06 | Outpatient (CLI) | payer SELFPAY ==
[~2020-11-06] MED LIST changes: +AMOX250S5 PO; -CLIN150C17 PO; +CLIN150C18 PO; +DEXAINTSOL PO; +HYDR15SO8 PO; -SULF1TAB35 PO; +SULF1TAB38 PO; +TETRACAINESUCKERS MT
== END ==
LOC: LABNPT 07:44
PROVIDERS: ATTEND Surgery
DX: Z20.822 Contact with and (suspected) exposure to COVID-19 (principal)
CPT/HCPCS: 87635

== ENCOUNTER 2020-11-08 06:54 | Day surgery (SDC) | payer SELFPAY ==
[2020-11-08] VITALS (10 sets, daily range): BP systolic 129–150; BP diastolic 78–95
[~2020-11-08] VITALS: Ht 182.9 cm; Wt 26.5 kg
[2020-11-08] MEDS: LACTATED RINGERS 1,000 ML IV PRN ×2 (07:08→07:54)
[2020-11-08] MEDS ORDERED: proPOfol 200 MG/20 ML (DIPRIVAN) VIAL IV ONE (07:19)
[2020-11-08] MEDS ORDERED: MIDAZOLAM 2 MG/2 ML (VERSED) VIAL ONE (07:19)
[2020-11-08] MEDS ORDERED: ROCURONIUM 10 MG/ML 5 ML SYRINGE IV ONE (07:19)
[2020-11-08] MEDS ORDERED: ONDANSETRON 4 MG/2 ML (SDV) Z0FRAN ONE (07:19)
[2020-11-08] MEDS ORDERED: fentaNYL INJ 100 MCG/2 ML AMP ONE (07:20)
[2020-11-08] MEDS ORDERED: LIDOCAINE PF 2% 5 ML (XYLOCAINE) VIAL ONE (07:23)
--- NOTE | 2020-11-08 07:25 | Progress Note-Pre Operative ---
Pre-Operative Progress Note H&P Reviewed The H&P was reviewed, patient examined and no changes noted. Date Seen by Provider: Nov 08, 2020 Time Seen by Provider: 07:15 Date H&P Reviewed: Nov 08, 2020 Time H&P Reviewed: 07:15 Pre-Operative Diagnosis: Chronic Tonsillitis CHANI CAMPUZANO MD Nov 08, 2020 07:25
[2020-11-08 07:44] LABS: BASOPHILS % (AUTO) 1 % (0-10); EOSINOPHILS % (AUTO) 0 % (0-10); HEMATOCRIT 44 % (40-54); HEMOGLOBIN 14.5 g/dL (13.3-17.7); LYMPHOCYTES # (AUTO) 1.6 10^3/uL (1.0-4.0); LYMPHOCYTES % (AUTO) 32 % (12-44); MEAN CORPUSCULAR HEMOGLOBIN 29 pg (25-34); MEAN CORPUSCULAR HGB CONC 33 g/dL (32-36); MEAN CORPUSCULAR VOLUME 88 fL (80-99); MEAN PLATELET VOLUME 9.6 fL (9.0-12.2); MONOCYTES # (AUTO) 0.6 10^3/uL (0.0-1.0); MONOCYTES % (AUTO) 12 % (0-12); NEUTROPHILS # (AUTO) 2.7 10^3/uL (1.8-7.8); NEUTROPHILS % (AUTO) 55 % (42-75); PLATELET COUNT 427 10^3/uL (130-400); WHITE BLOOD COUNT 4.9 10^3/uL (4.3-11.0)
[2020-11-08] MEDS ORDERED: SEVOFLURANE (ULTANE) 15 ML INHAL SOLN ONE (07:54)
--- NOTE | 2020-11-08 07:54 | Progress Note-Post Operative ---
Post-Operative Progess Note Surgeon (s)/Investment Sales Assistant (s) Surgeon CHANI CAMPUZANO MD Investment Sales Assistant n/a Pre-Operative Diagnosis Chronic Tonsillitis Post-Operative Diagnosis same Post-Op Procedure Note Date of Procedure: Nov 08, 2020 Name of Procedure Performed: Tonsillectomy Description & Findings Description and Findings: n/a Anesthesia Type get Estimated Blood Loss minimal Packing none. Specimen(s) collected/removed tonsils CHNAI CAMPUZANO MD Nov 08, 2020 07:54
[2020-11-08] MEDS ORDERED: NS IV 1000 ML 1,000 ML IV SCH (08:00)
[2020-11-08] MEDS ORDERED: HYDROcodone/APAP 7.5MG-325 MG/15 ML (LORTAB) UDC PO PRN (08:00)
[2020-11-08] MEDS ORDERED: APAP 325 MG/10.15 ML LIQ (TYLENOL) UDC PO PRN (08:00)
[2020-11-08] MEDS ORDERED: DEXAINTSOL PO (09:23)
[2020-11-08] MEDS ORDERED: TETRACAINESUCKERS MT (09:23)
[2020-11-08] MEDS ORDERED: HYDR15SO8 PO (09:23)
[2020-11-08] MEDS ORDERED: AMOX250S5 PO (09:23)
--- NOTE | 2020-11-08 10:10 | Anesthesia-General Post-Op ---
General Patient Condition Mental Status/LOC: Same as Preop Cardiovascular: Satisfactory Nausea/Vomiting: Absent Respiratory: Satisfactory Pain: Controlled Complications: Absent Post Op Complications Complications None Follow Up Care/Instructions Patient Instructions None needed. Anesthesia/Patient Condition Patient Condition Patient is doing well, no complaints, stable vital signs, no apparent adverse anesthesia problems. No complications reported per nursing. PEEWEE ERAZO CRNA Nov 08, 2020 10:10
== END 2020-11-08 11:15 ==
LOC: SDC 06:54
PROVIDERS: ATTEND Otolaryngology Otolaryngology/Facial Plastic Surgery
DX: J35.01 Chronic tonsillitis (principal); F32.9 Major depressive disorder, single episode, unspecified; F90.2 Attention-deficit hyperactivity disorder, combined type; Z79.899 Other long term (current) drug therapy
CPT/HCPCS: 36415; 85025; 87081; 88304